=== PATIENT | male | born 1930 | race Two or more races ===

== ENCOUNTER 2017-02-03 15:53 | Emergency (ER) | payer OTHER ==
[~2017-02-03] VITALS: Ht 177.8 cm; Wt 74.8 kg
[2017-02-03 18:00] VITALS: BP 134/64
== END 2017-02-03 18:51 | disposition home or self-care (01) ==
LOC: ER 15:59
DX: C67.9 Malignant neoplasm of bladder, unspecified (principal); E11.9 Type 2 diabetes mellitus without complications; F17.210 Nicotine dependence, cigarettes, uncomplicated